=== PATIENT | female | born 1995 | race Caucasian/White ===

== ENCOUNTER 2018-01-22 21:44 | Emergency (ER) | payer SELFPAY ==
[2018-01-22] MEDS ORDERED: NS 0.9% 1000 ML* 1,000 ML IV ONE (22:39)
[2018-01-22] MEDS ORDERED: Metoclopramide IV* 5 MG/ML 2 ML VIAL IV SLOW PU ONE (22:41)
[2018-01-22] MEDS ORDERED: Pantoprazole IV* 40 MG IV ONE (22:41)
[2018-01-22] MEDS ORDERED: Morphine INJ* 4 MG/ML 1 ML SYRINGE (NEW SYRINGE VERSION) IV ONE (22:42)
[2018-01-22] MEDS ORDERED: Al Hydrox/Mg Hydrox/Simet LIQ* 30 ML UDC PO ONE (23:37)
[2018-01-22] MEDS ORDERED: Lidocaine 2% VISCOUS* 15 ML UDC PO ONE (23:37)
[2018-01-23 00:49] VITALS: BP 119/65
--- NOTE | 2018-01-23 00:55 | ED ---
Gisselle Church Rebecca, scribed for Vic Ferrer MD on 01/22/18 at 2241 . Abdominal Pain/Female - HPI Summary HPI Summary: Pt is a 22 y/o F who presents to ED c/o abdominal pain. Pain began 2 days ago and is located in the RUQ and umbilical regions without radiation to the back. Currently, pain is severe, ranked 8/10. Additionally c/o N/V. Denies diarrhea and fever. States "everything is sitting in my stomach and not being digested." PMHx GERD. - History of Current Complaint Chief Complaint: EDAbdPain Stated Complaint: ABD PAIN Time Seen by Provider: 01/22/18 22:35 Hx Obtained From: Patient Onset/Duration: Lasting Days, Still Present Severity Currently: Severe Pain Intensity: 8 Pain Scale Used: 0-10 Numeric Location: Discrete At: RUQ, Umbilical Radiates: No Associated Signs and Symptoms: Positive: Nausea, Vomiting. Negative: Fever, Diarrhea Allergies/Adverse Reactions: Allergies Allergy/AdvReac Type Severity Reaction Status Date / Time No Known Allergies Allergy Verified 01/22/18 21:54 PMH/Surg Hx/FS Hx/Imm Hx GI History: Reports: Hx Gastroesophageal Reflux Disease Psychiatric History: Reports: Hx Anxiety, Hx Depression Infectious Disease History: No Infectious Disease History: Denies: Traveled Outside the [place] in Last 30 Days - Family History Known Family History: Negative: Diabetes - Social History Alcohol Use: Weekly Substance Use Type: Reports: Marijuana Smoking Status (MU): Never Smoked Tobacco Review of Systems Negative: Fever Positive: Abdominal Pain, Vomiting, Nausea. Negative: Diarrhea All Other Systems Reviewed And Are Negative: Yes Physical Exam - Summary Physical Exam Summary: VITAL SIGNS: Reviewed. GENERAL: ~Patient is a well-developed and nourished female who is lying comfortable in the stretcher. Patient is not in any acute respiratory distress. HEAD AND FACE: No signs of trauma. No ecchymosis, hematomas or skull depressions. No sinus tenderness. EYES: PERRLA, EOMI x 2, No injected conjunctiva, no nystagmus. EARS: Hearing grossly intact. Ear canals and tympanic membranes are within normal limits. MOUTH: Oropharynx within normal limits. NECK: Supple, trachea is midline, no adenopathy, no JVD, no carotid bruit, no c- spine tenderness, neck with full ROM. CHEST: Symmetric, no tenderness at palpation LUNGS: Clear to auscultation bilaterally. No wheezing or crackles. CVS: Regular rate and rhythm, S1 and S2 present, no murmurs or gallops appreciated. ABDOMEN: Soft, RUQ tenderness. No signs of distention. No rebound no guarding, and no masses palpated. Bowel sounds are normal. EXTREMITIES: FROM in all major joints, no edema, no cyanosis or clubbing. NEURO: Alert and oriented x 3. No acute neurological deficits. Speech is normal and follows commands. SKIN: Dry and warm Triage Information Reviewed: Yes Vital Signs On Initial Exam: Initial Vitals Temp Pulse Resp BP Pulse Ox 99.1 F 95 16 112/65 97 01/22/18 21:50 01/22/18 21:50 01/22/18 21:50 01/22/18 21:50 01/22/18 21:50 Vital Signs Reviewed: Yes Diagnostics - Vital Signs Vital Signs Temp Pulse Resp BP Pulse Ox 01/22/18 21:50 99.1 F 95 16 112/65 97 - Laboratory Lab Statement: Any lab studies that have been ordered have been reviewed, and results considered in the medical decision making process. - Radiology Abd XR Xray Interpretation: No Acute Changes Radiology Interpretation Completed By: ED Physician - Ultrasound No standard instances Ultrasound Interpretation: No Acute Changes - Gallbladder US: The gallbaldder appears distended, usually from fasting state. No sonographic evidence for cholelithiasis or acute cholecystitis. No evidence of biliary obstruction. Limited evaluation of the pancreatic head and body is grossly unremarkable. The liver is unremarkable and without enlargement. The right kdiney is within normal limits without hydronephrosis. ED physician reviewed this radiology report. Ultrasound Interpretation Completed By: Radiologist Abdominal Pain Fem Course/Dx - Course Course Of Treatment: Pt is a 22 y/o F who presents to ED c/o abdominal pain. Pain began 2 days ago and is located in the RUQ and umbilical regions without radiation to the back. Currently, pain is severe, ranked 8/10. Additionally c/o N/V. Denies diarrhea and fever. States "everything is sitting in my stomach and not being digested." PMHx GERD. Abd XR and Gallbladder US reveal no acute findings. Patient refuses bloodwork. In the ED course, pt received Maalox, Xylocaine Reglan, fluids, morphine, and protonix. She will be D/C to home with Dx of GERD with Rx for Protonix and Reglan with a followup with her PCP. She understands and agrees. - Diagnoses Provider Diagnoses: GERD (gastroesophageal reflux disease) Discharge - Sign-Out/Discharge Documenting (check all that apply): Discharge - Discharge Plan Condition: Stable Disposition: HOME Prescriptions: Metoclopramide TAB* [Reglan TAB*] 10 mg PO Q6H PRN #20 tab PRN Reason: Nausea/Vomiting Pantoprazole TAB (NF) [Protonix TAB (NF)] 40 mg PO DAILY #30 tab Patient Education Materials: Gastroesophageal Reflux Disease (ED) Referrals: [facility] [place] PHYSICIAN REFERRAL [Outside] - 3 Days Additional Instructions: RETURN TO EMERGENCY DEPARTMENT FOR ANY NEW OR WORSENING SYMPTOMS The documentation as recorded by the Gisselle jordan Rebecca accurately reflects the service I personally performed and the decisions made by Nabil dumont Abdul, MD.
--- NOTE | 2018-01-23 07:14 | RAD ---
INDICATION: Abdominal pain. COMPARISON: There are no prior studies available for comparison. TECHNIQUE: Supine and upright views of the abdomen were obtained. FINDINGS: The small bowel and colon appear nondistended. No free intraperitoneal air is seen. There is a small calcific density which projects over the pelvis laterally on the right side likely representing a phlebolith. There is a mild dorsal lumbar scoliosis convex to the right side. IMPRESSION: NO EVIDENCE FOR ACUTE FINDING.
--- NOTE | 2018-01-23 07:15 | RAD ---
INDICATION: Abdominal pain. COMPARISON: There are no prior studies available for comparison. TECHNIQUE: Multiple real-time images of the right upper quadrant were obtained. FINDINGS: The gallbladder appear normal. No gallbladder wall thickening or pericholecystic fluid is present. No intra or extrahepatic ductal distention is present. The common bile duct measured 0.3 cm in diameter. The liver is normal in size without significant focal abnormality. The pancreas is partially obscured by overlying bowel gas. The right kidney is normal in size without evidence for hydronephrosis. There is an extrarenal pelvis present. IMPRESSION: NEGATIVE EXAM.
== END 2018-01-23 00:48 | disposition home or self-care (01) ==
LOC: ED 21:44
DX: K21.9 Gastro-esophageal reflux disease without esophagitis (principal); R11.2 Nausea with vomiting, unspecified
CPT/HCPCS: 74019; 76705; 96374; 96375; 99282; A9270-GY